=== PATIENT | male | born 1950 | race Two or more races ===

== ENCOUNTER 2021-06-01 15:13 | Emergency (ER) | payer OTHER ==
[~2021-06-01] VITALS: Ht 193 cm; Wt 83.9 kg
[2021-06-01] MEDS ORDERED: AVAPRO150 MG (16:06)
[2021-06-01] MEDS ORDERED: WARFARIN SODIUM4 MG (16:07)
[2021-06-01] MEDS ORDERED: AMOX-CLAV 875-1 EAC1 PO (20:38)
[2021-06-01] MEDS ORDERED: DOLOGEN CAPLET1 EACH PO (20:38)
== END 2021-06-01 21:02 | disposition home or self-care (01) ==
LOC: ER 15:13
DX: J03.90 Acute tonsillitis, unspecified (principal); Z03.818 Encounter for observation for suspected exposure to other biological agents ruled out

== ENCOUNTER 2021-08-17 11:21 | Outpatient (CLI) | payer OTHER ==
[~2021-08-17 11:21] MED LIST: AMOX-CLAV 875-1 EAC1 PO; AVAPRO150 MG; DOLOGEN CAPLET1 EACH PO; WARFARIN SODIUM4 MG
== END 2021-08-17 11:28 | disposition home or self-care (01) ==
LOC: RAD 11:21
PROVIDERS: ATTEND Orthopaedic Surgery
DX: S62.610A Displaced fracture of proximal phalanx of right index finger, initial encounter for closed fracture (principal)

== ENCOUNTER 2021-10-03 09:47 | Outpatient (CLI) | payer OTHER | END 2021-10-03 09:54 | disposition home or self-care (01) | LOC: RAD 09:47 | PROVIDERS: ATTEND Family Medicine | DX: R05.8 Other specified cough (principal); J20.8 Acute bronchitis due to other specified organisms ==

== ENCOUNTER 2022-11-17 18:36 | Inpatient (IN) | payer OTHER ==
[~2022-11-17] VITALS: Ht 188 cm; Wt 72.6 kg
--- NOTE | 2022-11-17 19:03 | NUR ---
PTE VERBALIZA QUE TIENE PULSO ELEVADO. PTE SE LE REALIZA EKG. PTE SE OBSERVA A/O X4. DRA WICK EVALUA EKG.
--- NOTE | 2022-11-17 20:34 | NUR ---
SE EJECUTAN TODAS LAS ORDENES MEDICAS BAJO MEDIDAS ASEPTICAS, PACIENTE PENDIENTE A RESULTADOS DE LABORATORIO Y RE EVALUACION MEDICA.
--- NOTE | 2022-11-17 22:50 | NUR ---
CAMBIO DE TURNO D: SE ENTREGA PACIENTE MASCULINO DE 72 ANOS DE EDAD QUIEN SE ENCUENTRA EN CUBICULO 18 EN COMPANIA DE [place] HIJO, PACIENTE LLEGA A LACHELLE POR PULSO ELEVADO. SALINE LOCK PATENTE ROBERT DE EDEMA Y ENROJECIMIENTO, PENDIENTE A RESULTADOS DE LABORATORIO Y LECTURA DE RADIOLOGIA, SE ENTREGA A MRS ANGEL, AL MOMENTO DE LA ENTREGA PACIENTE ALERTA Y ORIENTADO CON BARANDAS ELEVADAS POR SEGURIDAD, SEGUIR OBSERVANDO POR CAMBIOS SIGNIFICATIVOS.
--- NOTE | 2022-11-17 23:25 | NUR ---
2300 SE RECIBE PTE MASCULINO ALERTA Y ORIENTADO X3 DEL TURNO ANTERIOR, PTE CONECTADO A MONITOR CARDIACO Y OXIMETRIA DE PULSO CONTINUA. PTE SE OBSERVA CON RITMO CARDIACO IRREGULAR HR:[id number]/MIN. SE NOTIFICA A . SE LIANG Y REPORTAN S/V. SE REALIZA EKG Y SE PRESENTA A . SE OBSERVA VENOPUNCION PATENTE, ROBERT DE EDEMA Y ERITEMA EN H/L. PTE EN ESPERA DE RESULTADOS DE LABORATORIOS, SE ORIENTA SOBRE CONTINUIDAD DE TRATAMIENTO.
[2022-11-18] MEDS ORDERED: TOPROL XL200 MG PO (05:08)
[2022-11-18] MEDS ORDERED: IRBESARTAN-HCT1 EACH PO (05:09)
[2022-11-18] MEDS ORDERED: JANTOVEN5 MG PO (05:09)
[2022-11-20] MEDS ORDERED: GABAPENTIN300 M2 (08:51)
== END 2022-11-22 14:36 | disposition home or self-care (01) | DRG 918 ==
LOC: ER 18:36 → MEDI 11-18 00:43 → ICU-2 11-18 00:43 → SEC-K 11-18 01:07 → MEDI 11-18 12:03
PROVIDERS: ADMIT Internal Medicine; ATTEND Internal Medicine
PROC: 4A12X4Z Monitoring of Cardiac Electrical Activity, External Approach (ICD-10-PCS; principal; 2022-11-18)
DX: T45.511A Poisoning by anticoagulants, accidental (unintentional), initial encounter (principal); I47.1 Supraventricular tachycardia; I48.20 Chronic atrial fibrillation, unspecified; I11.9 Hypertensive heart disease without heart failure; Z86.73 Personal history of transient ischemic attack (TIA), and cerebral infarction without residual deficits

== ENCOUNTER 2023-02-05 14:52 | Outpatient (CLI) | payer OTHER ==
[~2023-02-05 14:52] MED LIST changes: +ATORVASTATIN CA40 MG PO; +AVAPRO; +BENZONATATE200 M1 PO; +ELIQUIS5 MG PO; +FAMOTIDINE20 MG PO; +GABAPENTIN300 M2; +HYDRALAZINE HCL25 MG PO; +IRBESARTAN-HCT1 EACH PO; +JANTOVEN5 MG PO; +METOPROLOL SUC100 MG PO; +TOPROL XL200 MG PO
== END 2023-02-05 15:06 | disposition home or self-care (01) ==
LOC: MRI 14:52
PROVIDERS: ATTEND Physical Medicine & Rehabilitation
DX: M54.2 Cervicalgia (principal)
CPT/HCPCS: 72141

== ENCOUNTER 2023-03-20 12:36 | Outpatient (CLI) | payer OTHER | END 2023-03-20 12:44 | disposition home or self-care (01) | LOC: MRI 12:36 | PROVIDERS: ATTEND Psychiatry & Neurology Neurology | DX: M51.36 Other intervertebral disc degeneration, lumbar region (principal) | CPT/HCPCS: 72146; 72148 ==

== ENCOUNTER 2023-11-07 08:40 | Outpatient (CLI) | payer OTHER | END 2023-11-07 08:52 | disposition home or self-care (01) | LOC: SONOGRAMA 08:40 | PROVIDERS: ATTEND Internal Medicine | DX: R74.01 Elevation of levels of liver transaminase levels (principal) ==

== ENCOUNTER 2025-03-17 08:06 | Outpatient (CLI) | payer OTHER | END 2025-03-17 08:07 | disposition home or self-care (01) | LOC: NUCLEAR 08:06 | DX: G30.9 Alzheimer's disease, unspecified (principal) | CPT/HCPCS: 78803; A9557 ==